=== PATIENT | female | born 1995 | race African-American/Black ===

== ENCOUNTER 2020-08-06 16:38 | Emergency (ER) | payer MEDICAID ==
[~2020-08-06] VITALS: Ht 162.6 cm; Wt 50.0 kg
[2020-08-06 18:38] LABS: COLOR URINE YELLOW (YELLOW); KETONES URINE NEGATIVE (NEGATIVE); LEUKOCYTE ESTERASE URINE TRACE (NEGATIVE); NITRITE URINE POSITIVE (NEGATIVE); OCCULT BLOOD URINE NEGATIVE (NEGATIVE); PROTEIN URINE NEGATIVE (NEGATIVE); SPECIFIC GRAVITY URINE 1.014 (1.005-1.030)
[2020-08-06 18:42] LABS: CLARITY URINE HAZY (CLEAR)
[2020-08-06 18:44] LABS: UCG SCREEN NEGATIVE
[2020-08-06] MEDS ORDERED: ONDANSETRON 4MG ODT PO ONE (19:00)
[2020-08-06] MEDS ORDERED: CEPHALEXIN 250MG CAPSULE PO ONE (19:00)
[2020-08-06] MEDS ORDERED: ONDA4TAB5 MT (19:01)
[2020-08-06] MEDS ORDERED: CEPH500C2 MT (19:01)
[2020-08-06 19:45] VITALS: BP 101/69
== END 2020-08-06 19:52 | disposition home or self-care (01) ==
LOC: ER 16:38
DX: N39.0 Urinary tract infection, site not specified (principal); Z20.822 Contact with and (suspected) exposure to COVID-19; Z79.899 Other long term (current) drug therapy
CPT/HCPCS: 81003; 81025; 99283; C9803; Q0162; U0003; U0005; Z7610

== ENCOUNTER 2024-03-06 18:39 | Emergency (ER) | payer MEDICAID, MEDICARE ==
[~2024-03-06] VITALS: Ht 157.5 cm; Wt 54.0 kg
[~2024-03-06 18:39] MED LIST: CEPH500C2 MT; ONDA4TAB5 MT
[2024-03-06 18:48] VITALS: PULSE 81; RESP 14; O2SAT 99
[2024-03-06 19:00] VITALS: BP 116/72; TEMP 98.6; O2SAT 100
[2024-03-06 19:50] LABS: BASOPHILS % 0.3 % (0.0-2.0); EOSINOPHILS % 2.1 % (0.0-5.0); HEMATOCRIT. 42.5 % (36.0-48.0); HEMOGLOBIN. 14.2 g/dL (12.0-16.0); LYMPHOCYTES % 16.8 % (20.0-50.0); MEAN CORPUSCULAR HEMOGLOBIN 29.5 pg (28.0-32.0); MEAN CORPUSCULAR HGB CONC 33.4 g/dL (31.0-37.0); MEAN CORPUSCULAR VOLUME 88.3 fL (81.0-99.0); MONOCYTES % 11.1 % (2.0-8.0); NEUTROPHILS % 69.7 % (40.0-76.0); PLATELET 196 x1000/uL (130-400); RED BLOOD CELL COUNT 4.81 mill/uL (4.2-5.4); WHITE BLOOD COUNT 9.2 x1000/uL (4.5-11.0)
[2024-03-06 19:54] LABS: CHLORIDE 109 mEq/L (98-107); POTASSIUM 3.3 mEq/L (3.5-5.1); SODIUM 142 mEq/L (136-145)
[2024-03-06 19:55] LABS: CALCIUM 8.8 mg/dL (8.7-10.4); CARBON DIOXIDE 24 mEq/L (21-32)
[2024-03-06 20:00] LABS: CREATININE 0.8 mg/dL (0.6-1.0); GLUCOSE 108 mg/dL (70-105); UREA NITROGEN BLOOD 7 mg/dL (9-23)
[2024-03-06 22:23] LABS: HCG SCREEN NEGATIVE
[2024-03-06 23:47] LABS: CLARITY URINE CLOUDY (CLEAR); COLOR URINE YELLOW (YELLOW); GLUCOSE URINE NEGATIVE (NEGATIVE); KETONES URINE NEGATIVE (NEGATIVE); LEUKOCYTE ESTERASE URINE 1+ (NEGATIVE); NITRITE URINE POSITIVE (NEGATIVE); OCCULT BLOOD URINE 3+ (NEGATIVE); PH URINE 6.5 (4.5-8.0); PROTEIN URINE NEGATIVE (NEGATIVE); SPECIFIC GRAVITY URINE 1.015 (1.005-1.030); UROBILINOGEN URINE 0.2 E.U./dL (0.2-1.0)
[2024-03-07] MEDS ORDERED: CEPH500T MT (00:36)
[2024-03-07 05:07] LABS: SQUAMOUS EPITHELIAL CELL URINE FEW /lpf (RARE/1+)
[2024-03-07 05:10] LABS: BACTERIA URINE 4+; RBC URINE 0-2 /hpf (0-2)
== END 2024-03-06 23:20 | disposition home or self-care (01) ==
LOC: ER 18:39
DX: D25.9 Leiomyoma of uterus, unspecified (principal); N39.0 Urinary tract infection, site not specified; Z79.899 Other long term (current) drug therapy
CPT/HCPCS: 36415; 76830; 76856; 80048; 81003; 84703; 85025; 99284